=== PATIENT | male | born 1975 | race Caucasian/White ===

== ENCOUNTER → 2017-11-30 | Outpatient (CLI) | payer BC ==
[~2017-11-30] MED LIST: AIRBORNE GUMMI1 EACH PO; CENTRUM COMPLE1 EACH PO; CENTRUM ULTRA1 EACH PO; CLARITIN,ALAVAR10 MG PO; CLARITIN10 M3 PO; FLECAINIDE ACET50 MG PO; HYDROXYZINE HCL25 MG PO; LEXAPRO5 MG PO; LO-DOSE ASPIRIN81 M1 PO; LOPRESSOR50 MG PO; LOW DOSE ASPIRI81 M1 PO; MOBIC7.5 MG PO; PREVACID30 MG PO; TAMBOCOR50 MG PO; TOPROL XL100 MG PO; TOPROL XL25 MG PO; TYLENOL EXTRA500 MG PO; XARELTO20 MG PO
== END | disposition home or self-care (01) ==
LOC: RAD 16:17
DX: J32.9 Chronic sinusitis, unspecified (principal)
CPT/HCPCS: 70470